=== PATIENT | male | born 1960 | race Caucasian/White ===

== ENCOUNTER 2020-05-01 17:40 | Inpatient (IN) | payer OTHER ==
[~2020-05-01] VITALS: Ht 182.9 cm; Wt 97.1 kg
--- NOTE | 2020-05-01 17:40 | NUR ---
PT'S ADDRESS: [address] [facility] [phone]
[2020-05-01 17:41] VITALS: BP 143/81
[2020-05-01 18:18] LABS: ABSOLUTE NEUTROPHILS 10.9 thou/uL (1.4-8.2); BASOPHILS 0.3 % (0.0-2.0); EOSINOPHILS 0.5 % (0.0-3.0); HEMATOCRIT 47.6 % (42.0-52.0); HEMOGLOBIN 15.7 gm/dL (14.0-18.0); MCH 29.3 pg (26.0-34.0); MCHC 33.1 g/dL (28.0-37.0); MCV 88.7 fL (80.0-100.0); MONOCYTES 5.6 % (1.0-8.0); PLATELET COUNT 331 thou/uL (150-400); POLYS 85.6 % (36.0-66.0); RBC 5.37 mil/uL (4.50-6.00); RDW 13.8 % (10.5-14.5); WBC 12.7 thou/uL (4.0-11.0)
[2020-05-01 18:35] LABS: ANION GAP 17 mmol/L (7-16); BUN 21 mg/dL (7-18); CALCIUM 9.7 mg/dL (8.5-10.1); CHLORIDE 100 mmol/L (98-107); CO2 21 mmol/L (21-32); CREATININE 1.4 mg/dL (0.7-1.3); GLUCOSE 350 mg/dL (74-106); POTASSIUM 4.3 mmol/L (3.5-5.1); SODIUM 138 mmol/L (136-145)
[2020-05-01 18:42] LABS: ALBUMIN 3.6 g/dL (3.4-5.0); LIPASE 145 U/L (73-393); SGOT 35 U/L (15-37); SGPT 73 U/L (30-65); TOTAL BILIRUBIN 0.4 mg/dL (0.2-1.0); TOTAL PROTEIN 7.8 g/dL (6.4-8.2); TROPONIN-I <0.06 ng/mL (<0.06)
[2020-05-01 19:19] LABS: URINE BILIRUBIN NEGATIVE (Negative); URINE BLOOD NEGATIVE (Negative); URINE CLARITY CLEAR; URINE COLOR YELLOW; URINE GLUCOSE-RANDOM* 3+ (Negative); URINE KETONES NEGATIVE (Negative); URINE LEUKOCYTES-REFLEX NEGATIVE (Negative); URINE NITRITE-REFLEX NEGATIVE (Negative); URINE PROTEIN (DIPSTICK) NEGATIVE (Negative); URINE UROBILINOGEN 0.2 E.U./dl (0.2-1.0)
[2020-05-01 19:27] LABS: AMP/METHAMP Negative (Negative); BARBITURATES Negative (Negative); BENZODIAZEPINES Negative (Negative); COCAINE Negative (Negative); METHADONE Negative (Negative); OPIATES Negative (Negative); PCP Negative (Negative)
[2020-05-02 04:52] VITALS: BP 128/92
[2020-05-02 05:06] VITALS: BP 140/95
[2020-05-02 05:32] LABS: BE(vivo) -1.9 mmol/L (-2 to +3); HCO3 23.5 mmol/L (22.0-26.0); PCO2 42.3 mmHg (35.0-45.0); PO2 68.3 mmHg (80.0-100.0); pH 7.362 (7.360-7.450)
[2020-05-02 05:35] VITALS: BP 166/94
--- NOTE | 2020-05-02 06:19 | NUR ---
ASSUMED CARE OF PT AT 0520HRS. PT IS ALERT BUT ONLY ORIENTED TO PERSON AND PLACE. PT IS CONFUSED AND FORGETFUL MAKING HIM A POOR HISTORIAN. FALL PRECAUTION IN PLACE. PT PLACED ON TELE AND IS RUNNING ST WITH PVC. PT DENIED PAIN, NAUSEA OR SOA. PT HAD A BM THIS SHIFT. REDNESS NOTED IN BUTTOCK AREA. NO PEN WOUNDS NOTED. PT HAS R BKA. ORDERS STARTED. WILL CONTINUE TO MONITOR. AM RN TO FINISH ADMISSION.
--- NOTE | 2020-05-02 07:40 | EKG ---
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 : 1960 Requested By: Sylvester Sparks Order Number: [id number] MD: Zaid Espinoza Measurements Intervals [place] Rate: 129 P: -24 SD: 125 QRS: -36 QRSD: 92 T: 159 QT: 294 QTc: 431 Interpretive Statements Sinus tachycardia Multiple ventricular premature complexes Left axis deviation Poor R wave progression Marked baseline artifact No previous ECG available for comparison Electronically Signed On 05-02-2020 7:40:14 GAS PLANT OPERATOR by Zaid Espinoza [email or web address] <ELECTRONICALLY SIGNED> By: Zaid Espinoza MD, [facility] 05/02/20 0740 1809 1809 Zaid Espinoza MD, FACC /EPI
[2020-05-02 07:55] VITALS: BP 152/88
--- NOTE | 2020-05-02 14:13 | NUR ---
PT ADMITTED RELATED TO AMS; DEHYDRATION; ACIDOSIS. CM REVIEWED CHART AND SPOKE WITH CARE TEAM. CM MET WITH PT AT BEDSIDE THIS AM. PT IS ALERT TO SELF AND PLACE. PT INDICATED HE HAD BEEN LIVING IN A HOUSE WITH HIS DTR WITH 3 STEPS TO ENTER THROUGH THE FRONT AND A RAMP IN BACK. PT INDICATED HE HAD USED A WC AT HOME AND THAT HE HAS A BSC. PT INDIATED THAT HE HAS A PCP BUT DOESN'T KNOW THEIR NAME OR WHERE HE SEES THEM. PT INDICATED THAT HIS DTR AND HIS GF DARRON DAVID ASSIST HIM IN THE HOME. HE COULDN'T TELL CM ABOUT LEVEL OF ASSIST HE NEEDED WOMEN SPECIALIST. HE DOESN'T KNOW HIS HOME PHONE NUMBER OR CONTACT NUMBERS FOR HIS DTR ZOHREH OR HIS GF. CM CALLED [facility] AND HE DOESN'T HAVE AN [facility] SERVICES CURRENTLY. CM FOUND THAT HE GOT A WC THROUGH [facility] 01/16/20. H&P AND PT INDICATED THAT PT HAD BEEN AT [facility] FOLLOWING R BKA AROUND MARY/ALICE. CM REQUESTED AND RECEIVED PERMISSION FROM PT TO REQUEST RECORDS (FACE SHEET) FROM [facility]. CM FAXED REQUERDS REQUEST. PT ON TWO IV ABX AND IV FLUIDS. CM TO FOLLOW INDICATED WITH DC PLANNING.
[2020-05-02 16:00] VITALS: BP 145/83
[2020-05-02 20:08] VITALS: BP 164/84
--- NOTE | 2020-05-02 20:13 | NUR ---
Assumed pt care this am, pt is A and o x 2 - 3, very forgetful, standard answer upond admission assessments is "i dont know, i am not sure". wiht a Fc drainig light yellow urine. Blood sugar monitoring done, medicatons given as per emar. Assessed by PT, pt is very unstable no able to get up from bed. Family called at 6pm and stated thye did not know where he was taken, daughter is to come and bring the medication lists tomorrow morning. Sarah (ex ) [phone], Yuko (daughter) [phone] confusion noted late in the pm. POC followed with no signs or verbalizations of distress. [id number] to the night nurse.
[2020-05-03 04:06] LABS: GLYCOHEMOGLOBIN (HGB A1C) 11.3 % (4.8-5.6)
[2020-05-03 06:19] LABS: HEMATOCRIT 42.9 % (42.0-52.0); HEMOGLOBIN 14.2 gm/dL (14.0-18.0); MCH 29.6 pg (26.0-34.0); MCHC 33.1 g/dL (28.0-37.0); MCV 89.3 fL (80.0-100.0); RBC 4.81 mil/uL (4.50-6.00); RDW 13.8 % (10.5-14.5); WBC 9.9 thou/uL (4.0-11.0)
[2020-05-03 06:48] LABS: CALCIUM 9.5 mg/dL (8.5-10.1); MAGNESIUM 1.7 mg/dL (1.8-2.4); POTASSIUM 3.7 mmol/L (3.5-5.1)
[2020-05-03 07:12] VITALS: BP 165/103
--- NOTE | 2020-05-03 07:53 | NUR ---
BP elevated. No home medication history in chart. [phone] paged, awaiting response.
--- NOTE | 2020-05-03 12:03 | NUR ---
The staff talked to Dr. Man about the Blood pressure being elevated at the nursing station around 11am.
[2020-05-03] MEDS ORDERED: TOPROL XL50 MG PO (12:14)
[2020-05-03] MEDS ORDERED: FLOMAX0.4 MG PO (12:15)
[2020-05-03] MEDS ORDERED: LISINOPRIL10 MG PO (12:15)
[2020-05-03] MEDS ORDERED: BENADRYL25 MG PO (12:18)
[2020-05-03] MEDS ORDERED: TYLENOL EXTRA500 MG PO (12:19)
[2020-05-03] MEDS ORDERED: ASA81BEC PO (12:20)
[2020-05-03] MEDS ORDERED: NOVOLIN R100 UNIT/1 (12:25)
[2020-05-03] MEDS ORDERED: NOVOLIN N100 UNIT/1 SUBQ (12:26)
[2020-05-03] MEDS ORDERED: AZITHROMYCIN500 MG PO (12:39)
--- NOTE | 2020-05-03 15:07 | NUR ---
PT'S EX AND DTR CONTACTED THE UNIT YESTERDAY EVENING AROUND 1800. EX [phone], DTR ZOHREH , SON VISHNU . SON VISHNU WAS MADE DESIGNATED VISITOR AND WAS ON UNIT THIS AM TO VISIT PT AND SPEAK WITH CARE TEAM. IT WAS CONFIRED THAT PT RESIDES IN A HOUSE WITH ZOHREH HIS DTR WITH 2 STEPS THROUGH THE FRONT NO RAMP. SON INDICATED THAT THERE HAVE A AND BSC NO HOSPITAL BED. EX INDICATED THAT PT HAD R BKA MAYBE 6 OR SO MONTHS AGO. SHE INDICATED PT HAD THERAPY AFTER BKA BUT NOTHING SINCE. FAMILY DIDN'T KNOW PCP BUT CM LOOKED AT MEDICATION BOTTLES SON BROUGHT IN AND MEDS HAD BEEN PERSCRIBED BY TAMI AIKEN WHO IS AT [facility] IN [facility]. SON INDICATED THAT PT MAY HAVE NEED DIAGNOSED WITH DEMENTIA EARLIER THIS YEAR BUT THAT HE IS WORSE THEN HIS BASELINE MENTATION AT THE MOMENT. CM ASKED IF DTR HAD LOOKED INTO [facility] AND SON INDICATED THAT SHE WAS AWARE OF IT BUT HADN'T PERSUED IT. SON INDICATED THAT THEY ARE RECEPTIVE TO ANY DC RECOMMENDATIONS. THAT THEY AREN'T OPPOSED TO REHAB STAY OR HH UPON DC WHATEVER IS RECOMMENDED. CM PROVIDED SND LIST FOR REVIEW. PHYSICAIN ORDERED AN MRI AND INDICATED THAT FURTHER WORKUP WILL BE DONE. CM TO FOLLOW INDICATED WITH DC PLANNING.
--- NOTE | 2020-05-03 15:37 | NUR ---
The staff talked to Dr. Marie about the discharge, Dr. Marie voiced that the patient should go to rehab.
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
[2020-05-03 20:00] VITALS: BP 133/70
--- NOTE | 2020-05-04 06:36 | NUR ---
ASSUMED PT'S CARE # ABOUT 1900. ALERT AND ORIENTED. SOME CONFUSION AND FORGETFULNESS. MEDS GIVEN PER EMAR. RAVI FOR VOIDING. PT SLEPT WELL THIS SHIFT. FALL PRECAUTIONS IN PLACE. CALL LIGHT WITHIN REACH. WILL CONTINUE TO MONITOR.
[2020-05-04 08:15] VITALS: BP 152/100
[2020-05-04 15:20] VITALS: BP 139/75
--- NOTE | 2020-05-04 19:11 | NUR ---
Assumed pt care this am alert and oriented x 3 but very forgetful. Blood sugar monitored medications given as per emar. On telemetry would run sinus tach with PVC's. Has a FC drainig light yellow urine. POC followed with no signs or verbalizations of distres noted. Endorsed to the night nurse.
--- NOTE | 2020-05-04 19:43 | NUR ---
Assumed pt care this am, VS stable. ON the INDUSTRIAL ROOFER HELPER fentanyl pump. Medications given as per emar. Complete bath taken, step mopther at the bed side. POC followed, pain is managed with medication partial relief is noted and dependency on the marcotics. Step mother at the bedside with surgeon came to speak to them regarding patient medical state and no surgery is planned at thsi point. Small volume of stool noted in the colostomy bag. Endorsed to the night urse.
[2020-05-04 19:45] VITALS: BP 104/83
--- NOTE | 2020-05-05 05:32 | NUR ---
Assumed pt care at 1900. A/OX2-3,pleasantly confused able to make needs known at times. VSS. Denies pain on assessment. IV reinserted on RFA and abts infused as ordered. Pt has a stevenson to DD with yellow urine noted. ST on telemetry. Pt having hiccups when awake;Aranza ATTENUATOR notified order for Thorazine X1 given and effective. Pt has a RBKA with platinum and palladium kettle tender/immobilizer in place. Fall precautions in place,will continue to monitor pt.
[2020-05-05 08:11] VITALS: BP 139/80
[2020-05-05 15:05] VITALS: BP 146/92
--- NOTE | 2020-05-05 17:28 | NUR ---
Assumed pt care at 7am.Assessment completed.vss.Am meds given with breakfast and well tolerated.This rn assisted pt with feeding at all meals.Pt refused keeping media monitor on after been replaced 3 times [address].Dr Man notified and it was dc'd.Pt will probably dc home with home health in am.Fall bundle in place.Will continue to monitor.
[2020-05-05 19:57] VITALS: BP 115/53
[2020-05-05 22:00] VITALS: BP 174/85
--- NOTE | 2020-05-06 02:59 | NUR ---
PT CARE ASSUMED WITH PT IN BED AT 1900.PT IS A/O X3.PT IS ON BEDREST AND HAS A RT BKA WITH STUMP OK.PT NEEDS ASSISTANCE WITH FEEDING.IV ACCESS ON RT FA SL.PT HAS RAVI CATHETER IN PLACE.PT TAKE MEDS WHOLE WITH NO ISSUES NOTED.PT DENIED PAIN.WILL CONTINUE TO MONITOR POC
[2020-05-06 07:25] VITALS: BP 109/64
[2020-05-06 15:04] VITALS: BP 125/65
[2020-05-06 15:08] VITALS: BP 109/64
--- NOTE | 2020-05-06 15:13 | NUR ---
CARE TEAM INDICATED THAT PT IS MEDICALLY STABLE TO DC HOME THIS DAY WITH HH SERVICES. CM CALLED AND SPOKE WITH PT'S DTR AND SON. THEY ARE BOTH AWARE AND AGREEABLE. CM SPOKE WITH SON ABOUT SETTING PT UP WITH PCP FOLLOW UP APPOINTMENT. DOCTOR APPOINTMENT SCHEDULED FOR Wednesday05/08/20 AT 1:15 HERE AT [facility] [address] YUSEF SIMPSON COME TO [facility] AND GO TO YOUR LEFT. CM INCLUDED INFO FOR [place] MEDICAID [employer] AND [facility]. CM WAITING ON HH PROVIDER TO ACCEPT. CM TO ARRANGED [facility] HOME THIS DAY. CM NOTIFIED PT AND HE IS AWARE AND AGREEABLE.
[2020-05-06 15:15] VITALS: BP 109/64
--- NOTE | 2020-05-06 15:52 | NUR ---
FAXED REFERRAL TO [facility] SPOKE WITH BERTHA IN INTAKE SHE RECEIVED REFERRAL AND WILL ACCEPT. PT DISCHARGING TODAY FAXED DC ORDERS/SUMMARY RECEIVED CONFIRMATION AND BERTHA FROM [facility] WILL CALL PT TO ARRANGE VISITS.
[2020-05-06 16:16] VITALS: BP 109/64
== END 2020-05-06 17:16 | disposition home health service (06) | DRG 871 ==
LOC: ER 17:40 → 4W 05-02 03:07 → EROBS 05-02 03:07 → 4W 05-02 05:24
PROVIDERS: Emergency Medicine; Nurse Practitioner Family; ADMIT Hospitalist; ATTEND Hospitalist
DX: A41.9 Sepsis, unspecified organism (principal); J18.9 Pneumonia, unspecified organism; G93.41 Metabolic encephalopathy; E87.2 Acidosis; N17.9 Acute kidney failure, unspecified; N40.0 Benign prostatic hyperplasia without lower urinary tract symptoms; I10 Essential (primary) hypertension; E78.5 Hyperlipidemia, unspecified; K21.9 Gastro-esophageal reflux disease without esophagitis; E11.65 Type 2 diabetes mellitus with hyperglycemia; E86.0 Dehydration; Z20.822 Contact with and (suspected) exposure to COVID-19
CPT/HCPCS: 10045; 10047